=== PATIENT | male | born 1950 | race Caucasian/White ===

== ENCOUNTER 2020-09-09 10:43 | Inpatient (IN) | payer MEDICARE ==
[2020-09-09] MEDS ORDERED: Sodium Chloride 0.9% 10 ML Syringe FLUSH PRN (10:45)
[2020-09-09] MEDS ORDERED: Metoprolol Tartrate 5 MG/5 ML SDV IVPUSH ONE (10:46)
[2020-09-09] MEDS ORDERED: Aspirin 81 MG Tab.Chew PO ONE (10:46)
[2020-09-09] MEDS ORDERED: Sodium Chloride 0.9% 1,000 ML IV ONE (10:47)
--- NOTE | 2020-09-09 10:49 | EDM.PDOC ---
ED HPI GENERAL MEDICAL PROBLEM - General Chief Complaint: Chest Pain Stated Complaint: AMBULANCE Time Seen by Provider: 09/09/20 10:43 Source of Information: Reports: Patient, EMS History Limitations: Reports: No Limitations - History of Present Illness INITIAL COMMENTS - FREE TEXT/NARRATIVE: patient presented to the ER with a c/o CP and palpitations - started last night. He is visiting from another town and decided to wait till the morning - hoping it will resolve on it's own. h/o CAD - s/p CABG 18 yrs ago - no stents. h/o T2DM on OHA. h/o COPD - not on 02. Reports CP 10 out of 10. EMS done EKG showed afib w RVR. quit smoking 18 yrs ago. Drinks ETOH + coffee on a daily basis. Onset: Sudden Duration: Day(s): (1) Location: Reports: Chest Quality: Reports: Sharp Severity: Severe Improves with: Reports: None Worsens with: Reports: None Mid-Sternal Chest Pain Score (Numeric/FACES): 4 - Related Data Allergies Allergy/AdvReac Type Severity Reaction Status Date / Time sulfamethoxazole Allergy Mild Other Verified 09/09/20 11:15 [From Bactrim] trimethoprim [From Bactrim] Allergy Mild Other Verified 09/09/20 11:15 Home Meds: Home Meds Aspirin [Aspirin EC] 325 mg PO QPM 09/09/20 [History] Doxycycline Monohydrate 100 mg PO BID 09/09/20 [History] Empagliflozin [Jardiance] 25 mg PO DAILY 09/09/20 [History] Fluticasone Propionate [Flonase Allergy Relief] 9.9 ml NS DAILY 09/09/20 [History] Metoprolol Succinate [Toprol XL] 25 mg PO DAILY 09/09/20 [History] Omeprazole 40 mg PO DAILY 09/09/20 [History] atorvaSTATin [Lipitor] 80 mg PO BEDTIME 09/09/20 [History] lisinopriL [Lisinopril] 5 mg PO DAILY 09/09/20 [History] metFORMIN [Glucophage] 500 mg PO BIDMEALS 09/09/20 [History] Past Medical History Cardiovascular History: Reports: CAD Respiratory History: Reports: COPD Gastrointestinal History: Reports: GERD ED ROS GENERAL - Review of Systems Review Of Systems: See Below Constitutional: Reports: No Symptoms HEENT: Reports: No Symptoms Respiratory: Reports: No Symptoms Cardiovascular: Reports: Chest Pain GI/Abdominal: Reports: No Symptoms Musculoskeletal: Reports: No Symptoms Skin: Reports: No Symptoms Neurological: Reports: No Symptoms ED EXAM, GENERAL - Physical Exam Exam: See Below Exam Limited By: No Limitations General Appearance: Alert, WD/WN, Mild Distress Eye Exam: Bilateral Eye: EOMI, PERRL Head: Atraumatic Respiratory/Chest: No Respiratory Distress, Lungs Clear Cardiovascular: Normal Peripheral Pulses, Tachycardia GI/Abdominal: Normal Bowel Sounds, Soft, Non-Tender Back Exam: Normal Inspection, Full Range of Motion Neurological: Alert, Oriented, No Motor/Sensory Deficits #1 Interpretation EKG Date: 09/09/20 Rhythm: A-Fib [place]: Normal P-Wave: Absent QRS: Normal ST-T: Normal QT: Normal Comparison: NA - No Prior EKG #2 Interpretation EKG Date: 09/09/20 Rhythm: NSR [place]: Normal P-Wave: Present QRS: Normal ST-T: Normal QT: Normal Comparison: Change From Previous EKG Course - Vital Signs Last Recorded V/S: Last Vital Signs Temp Pulse 69 09/09/20 12:45 Resp 18 09/09/20 12:23 BP 119/77 09/09/20 12:45 Pulse Ox 100 09/09/20 12:45 - Orders/Labs/Meds Orders: Active Orders 24 hr Category Date Time Status EKG Documentation Completion [RC] ASDIRECTED Care 09/09/20 10:46 Active CORONAVIRUS COVID-19 RAPID [[facility]] Urgent Lab 09/09/20 12:12 Ordered Heparin Sodium/D5W [Heparin 25,000 Units in D5W 500 ML] Med 09/09/20 11:30 Active 25,000 units in 500 ml IV TITRATE Sodium Chloride 0.9% [Saline Flush] Med 09/09/20 10:45 Active 10 ml FLUSH ASDIRECTED PRN Saline Lock Insert [OM.PC] Routine Oth 09/09/20 10:45 Ordered EKG 12 Lead [EK] Routine Ther 09/09/20 10:45 Ordered Medication Orders Heparin Sodium/Dextrose (Heparin 25,000 Units In D5w 500 Ml) 25,000 units in 500 mls @ 19.051 mls/hr IV TITRATE VENITA; Protocol Last Admin: 09/09/20 11:43 Dose: 12 units/kg/hr, 19.051 mls/hr Documented by: KAUSHIK Cosigned by: WEEMAMY Sodium Chloride (Sodium Chloride 0.9% 10 Ml Syringe) 10 ml FLUSH ASDIRECTED PRN PRN Reason: Keep Vein Open Labs: Laboratory Tests 09/09/20 09/09/20 09/09/20 Range/Units 10:57 10:57 10:57 WBC 8.2 (4.0-11.0) K/uL RBC 3.92 L (4.50-6.50) M/uL Hgb 11.7 L (13.0-18.0) g/dL Hct 36.2 L (40.0-54.0) % MCV 92 (76-96) fL MCH 29.8 (27.0-32.0) pg MCHC 32.3 (31.0-35.0) g/dL RDW 14.9 (11.0-16.0) % Plt Count 280 (150-400) K/uL MPV 9.8 (6.0-10.0) fL APTT (24.4-33.2) SECONDS D-Dimer, Quantitative 777 H (0-400) ng/mL Sodium 139 (136-145) mmol/L Potassium 3.9 (3.5-5.1) mmol/L Chloride 103 (98-107) mmol/L Carbon Dioxide 20.3 L (21.0-32.0) mmol/L Anion Gap 19.6 H (5.0-15.0) mmol/L BUN 21 (8-26) mg/dL Creatinine 1.49 H (0.70-1.30) mg/dL Est Cr Clr Drug Dosing TNP Estimated GFR (MDRD) 46 L (>60) MLS/MIN BUN/Creatinine Ratio 14.1 (6-25) Glucose 252 H (74-100) mg/dL Calcium 9.3 (8.5-10.1) mg/dL Phosphorus 2.4 L (2.5-4.9) mg/dL Magnesium 1.4 L (1.8-2.4) mg/dL Troponin I 0.034 (0.000-0.060) ng/mL 09/09/20 Range/Units 11:29 WBC (4.0-11.0) K/uL RBC (4.50-6.50) M/uL Hgb (13.0-18.0) g/dL Hct (40.0-54.0) % MCV (76-96) fL MCH (27.0-32.0) pg MCHC (31.0-35.0) g/dL RDW (11.0-16.0) % Plt Count (150-400) K/uL MPV (6.0-10.0) fL APTT 24.2 L (24.4-33.2) SECONDS D-Dimer, Quantitative (0-400) ng/mL Sodium (136-145) mmol/L Potassium (3.5-5.1) mmol/L Chloride (98-107) mmol/L Carbon Dioxide (21.0-32.0) mmol/L Anion Gap (5.0-15.0) mmol/L BUN (8-26) mg/dL Creatinine (0.70-1.30) mg/dL Est Cr Clr Drug Dosing Estimated GFR (MDRD) (>60) MLS/MIN BUN/Creatinine Ratio (6-25) Glucose (74-100) mg/dL Calcium (8.5-10.1) mg/dL Phosphorus (2.5-4.9) mg/dL Magnesium (1.8-2.4) mg/dL Troponin I (0.000-0.060) ng/mL Meds: Medications Generic Name Dose Route Start Last Admin Trade Name Freq PRN Reason Stop Dose Admin Heparin Sodium/Dextrose 25,000 units in 500 mls @ 19.051 mls/hr 09/09/20 11:30 09/09/20 11:43 Heparin 25,000 Units In D5w 500 Ml IV 12 units/kg/hr TITRATE VENITA 19.051 mls/hr Administration Protocol 12 UNITS/KG/HR Sodium Chloride 10 ml 09/09/20 10:45 Sodium Chloride 0.9% 10 Ml Syringe FLUSH ASDIRECTED PRN Keep Vein Open Discontinued Medications Generic Name Dose Route Start Last Admin Trade Name Freq PRN Reason Stop Dose Admin Aspirin 324 mg 09/09/20 10:46 09/09/20 10:52 Aspirin 81 Mg Tab.Chew PO 09/09/20 10:47 324 mg ONETIME ONE Administration Sodium Chloride 1,000 mls @ 999 mls/hr 09/09/20 10:47 09/09/20 11:23 Normal Saline IV 09/09/20 11:47 999 mls/hr .BOLUS ONE Administration Magnesium Sulfate/Dextrose Confirm 09/09/20 12:43 Magnesium Sulfate In D5w 1 Gm/100 Ml Administered 09/09/20 12:44 Dose 1 gm in 100 mls @ as directed .ROUTE .STK-MED ONE Magnesium Sulfate/Dextrose 1 gm 09/09/20 11:31 Magnesium Sulfate/D5w 1 Gm/100 Ml Premix Bag IV 09/09/20 11:32 NOW STA Metoprolol Tartrate 5 mg 09/09/20 10:46 Metoprolol Tartrate 5 Mg/5 Ml Sdv IVPUSH 09/09/20 10:47 ONETIME ONE Nitroglycerin 0.4 mg 09/09/20 10:46 09/09/20 12:03 Nitroglycerin 0.4 Mg Tab.Sl SL 0.4 mg Q5M PRN Administration Chest Pain - Re-Assessments/Exams Free Text/Narrative Re-Assessment/Exam: upon arrival to the ER IV line was established initial EKG - showed afib w RVR HR 170's, BP 125/80. sating 98% on RA. CXR showed left lower lobe increased density - seems chronic and consistent with a h/o lung scarring from a remote lung infection CP was 10 out of 10 - Resolved after Nitro SL x2 ASA 324mg PO was given labs were ordered - including CBC, BMP, trop and ddimer. significant for low Mg level, high Cr and high ddimer. but normal Trop. HR down to 80 - EKG was repeated - showed NSR with no signs of ischemic changes IV heparin bolus and drip were started - 4k bolus and 1000unit/hr chest pain down to 1. He is happy with the outcome. Mg replacement by IV decision to admit the patient to the floor for IV heparin , hydration and Trop trend Departure - Departure Time of Disposition: 12:55 Disposition: Admitted As Inpatient 65 Condition: Fair Clinical Impression: Atrial fibrillation with RVR, D-dimer, elevated, Hypomagnesemia, COPD not affecting current episode of care Chest pain Qualifiers: Chest pain type: chest pain due to myocardial ischemia Ischemic chest pain type: unspecified angina pectoris type Qualified Code(s): I25.9 - Chronic ischemic heart disease, unspecified Forms: ED Department Discharge Sepsis Event Note (ED) - Focused Exam Vital Signs: Vital Signs Pulse Resp BP BP Pulse Ox 09/09/20 12:45 69 119/77 100 09/09/20 12:44 90 102/58 L 100 09/09/20 12:30 67 119/56 L 100 09/09/20 12:23 129 H 18 122/89 100 09/09/20 12:15 70 107/57 L 100 09/09/20 12:03 122/62 09/09/20 11:45 122/62 09/09/20 11:30 104/62 100 09/09/20 11:15 85 104/71 100 09/09/20 11:00 122 H 95/57 L 100 09/09/20 10:55 129/83 09/09/20 10:50 129/83 - Problem List & Annotations (1) Atrial fibrillation with RVR SNOMED Code(s): 134170806471916 Code(s): I48.91 - UNSPECIFIED ATRIAL FIBRILLATION Status: Acute Priority: Medium Current Visit: Yes (2) COPD not affecting current episode of care SNOMED Code(s): 22886942 Code(s): J44.9 - CHRONIC OBSTRUCTIVE PULMONARY DISEASE, UNSPECIFIED Status: Acute Priority: Low Current Visit: Yes (3) Chest pain SNOMED Code(s): 09721272 Code(s): R07.9 - CHEST PAIN, UNSPECIFIED Status: Acute Priority: Medium Current Visit: Yes Qualifiers: Chest pain type: chest pain due to myocardial ischemia Ischemic chest pain type: unspecified angina pectoris type Qualified Code(s): I25.9 - Chronic ischemic heart disease, unspecified (4) D-dimer, elevated SNOMED Code(s): 172623119 Code(s): R79.89 - OTHER SPECIFIED ABNORMAL FINDINGS OF BLOOD CHEMISTRY Status: Acute Priority: Low Current Visit: Yes (5) Hypomagnesemia SNOMED Code(s): 606780523 Code(s): E83.42 - HYPOMAGNESEMIA Status: Acute Priority: Low Current Visit: Yes - Problem List Review Problem List Initiated/Reviewed/Updated: Yes - My Orders Last 24 Hours: My Active Orders 09/09/20 10:45 Sodium Chloride 0.9% [Saline Flush] 10 ml FLUSH ASDIRECTED PRN Saline Lock Insert [OM.PC] Routine EKG 12 Lead [EK] Routine 09/09/20 10:46 EKG Documentation Completion [RC] ASDIRECTED 09/09/20 11:30 Heparin Sodium/D5W [Heparin 25,000 Units in D5W 500 ML] 25,000 units in 500 ml IV TITRATE 09/09/20 12:12 CORONAVIRUS COVID-19 RAPID [[facility]] Urgent - Assessment/Plan Last 24 Hours: My Active Orders 09/09/20 10:45 Sodium Chloride 0.9% [Saline Flush] 10 ml FLUSH ASDIRECTED PRN Saline Lock Insert [OM.PC] Routine EKG 12 Lead [EK] Routine 09/09/20 10:46 EKG Documentation Completion [RC] ASDIRECTED 09/09/20 11:30 Heparin Sodium/D5W [Heparin 25,000 Units in D5W 500 ML] 25,000 units in 500 ml IV TITRATE 09/09/20 12:12 CORONAVIRUS COVID-19 RAPID [[facility]LEC] Urgent Plan: 1- chest pain 2- ddimer elevation 3- afib w rvr 4- KADEEM 5- hypomagnesemia 6- h/o COPD 7- h/o CAD s/o CABG - continue on tele - troponin trend x3 - resume heparin by IV - resume hydration to improve kidney function - them maybe perform CT chest with IV contrast - Mg replacement - chest pain control with Nitro and heparin
[2020-09-09] MEDS: Nitroglycerin 0.4 MG Tab.SL SL PRN ×3 (10:50→12:03)
[2020-09-09] MEDS ORDERED: Heparin Sodium/D5W 25,000 UNITS/500 ML BAG IV SCH (11:30)
[2020-09-09] MEDS ORDERED: Magnesium Sulfate/D5W 1 GM/100 ML Premix Bag IV STA ×2 (11:31→17:09)
--- NOTE | 2020-09-09 11:52 | CR ---
DATE OF SERVICE: 09/09/2020 CLINICAL DATA: CP AP CHEST: The heart size is normal. There is increased density in the left lung base adjacent to the left hemidiaphragm consistent with basilar atelectasis or infiltrate. Pneumonia should be considered. There is slight blunting of the left costophrenic angle suggesting a small left pleural effusion or pleural scar. There are scattered reticular opacities throughout both lungs. There is a small nodular density in the right lower lung laterally. Chest CT is recommended to further evaluate it. There is degenerative disc disease throughout the thoracic spine. No other significant findings. [id number] [facility]
[2020-09-09] MEDS ORDERED: Magnesium Sulfate/D5W 1 GM/100 ML BAG ONE ×2 (12:43→17:13)
[2020-09-09] MEDS: EMPAGLIFLOZIN 25 MG PO SCH (16:04)
[2020-09-09] MEDS ORDERED: Nitroglycerin 0.4 MG Tab.SL SL ONE ×2 (17:07→21:10)
[2020-09-09] MEDS ORDERED: Magnesium Sulfate/D5W 1 GM/100 ML BAG IV ONE (17:15)
[2020-09-09] MEDS: metFORMIN 500 MG Tab PO SCH (17:17)
[2020-09-09] MEDS: Doxycycline 100 MG Cap PO SCH (19:49)
[2020-09-09] MEDS ORDERED: Aspirin 325 MG Tab.EC PO SCH (20:00)
[2020-09-09] MEDS ORDERED: atorvaSTATin 80 MG Tab PO SCH (20:00)
[2020-09-09] MEDS: Morphine 4 MG/ML VIAL IVPUSH PRN (21:40)
[2020-09-09] MEDS ORDERED: Heparin Sodium 5,000 UNITS/0.5 ML Syringe IVPUSH ONE (22:43)
[2020-09-09] MEDS ORDERED: Heparin Sodium 5,000 Units/ML Vial ONE (22:51)
[2020-09-10] MEDS: Morphine 4 MG/ML VIAL IVPUSH PRN (05:47)
[2020-09-10] MEDS ORDERED: Omeprazole 20 MG Cap.CR PO SCH (07:00)
[2020-09-10] MEDS ORDERED: Magnesium Sulfate/D5W 1 GM/100 ML Premix Bag IV STA (07:57)
[2020-09-10] MEDS ORDERED: Lisinopril 5 MG Tab PO SCH (08:00)
[2020-09-10] MEDS ORDERED: Metoprolol Succinate 25 MG Tab.ER PO SCH (08:00)
--- NOTE | 2020-09-10 08:14 | PCM.DCSUM1 ---
Discharge Summary - Hospital Course Brief History: patient initialy presented to the ER due to chest pain for 12 hrs and palpitations. Upon arrival to the ER, EKG showed afib w RVR - HR in 180. initial trop was WNL. IVF was given and metoprolol. converted back to NSR. Nitro SL was given - reprots pain has resolved. patient was admitted to the floor for observation, tele bed and trop trend. Diagnosis: Stroke: No - Discharge Data Discharge Date: 09/10/20 Discharge Disposition: DC/Tfer to Acute Hospital 02 Condition: Fair - Referral to Home Health Primary Care Physician: PCP None - Discharge Diagnosis/Problem(s) (1) Atrial fibrillation with RVR SNOMED Code(s): 243518983803412 ICD Code: I48.91 - UNSPECIFIED ATRIAL FIBRILLATION Status: Acute Priority: Medium (2) COPD not affecting current episode of care SNOMED Code(s): 43099000 ICD Code: J44.9 - CHRONIC OBSTRUCTIVE PULMONARY DISEASE, UNSPECIFIED Status: Acute Priority: Low (3) Chest pain SNOMED Code(s): 26117202 ICD Code: R07.9 - CHEST PAIN, UNSPECIFIED Status: Acute Priority: Medium Qualifiers: Chest pain type: chest pain due to myocardial ischemia Ischemic chest pain type: unspecified angina pectoris type Qualified Code(s): I25.9 - Chronic ischemic heart disease, unspecified (4) D-dimer, elevated SNOMED Code(s): 875653118 ICD Code: R79.89 - OTHER SPECIFIED ABNORMAL FINDINGS OF BLOOD CHEMISTRY Status: Acute Priority: Low (5) Hypomagnesemia SNOMED Code(s): 270079005 ICD Code: E83.42 - HYPOMAGNESEMIA Status: Acute Priority: Low - Patient Summary/Data Hospital Course: while in the floor - Heparin bolus and drip were given. nitro as needed for mild chest discomfort, as well as, morphine. Trop trend showed increasing to 8 then 16. contacted the advice line rn in [place] - who accepted the patient for evaluation - possible lab scientist. EKG no ST changes was transferred by EMS flight in a stable condition - Patient Instructions Diet: NPO - Discharge Plan *PRESCRIPTION DRUG MONITORING PROGRAM REVIEWED*: Not Applicable *COPY OF PRESCRIPTION DRUG MONITORING REPORT IN PATIENT CATY: Not Applicable Home Medications: Home Meds Aspirin [Aspirin EC] 325 mg PO QPM 09/09/20 [History] Doxycycline Monohydrate 100 mg PO BID 09/09/20 [History] Empagliflozin [Jardiance] 25 mg PO DAILY 09/09/20 [History] Fluticasone Propionate [Flonase Allergy Relief] 9.9 ml NS DAILY 09/09/20 [History] Metoprolol Succinate [Toprol XL] 25 mg PO DAILY 09/09/20 [History] Omeprazole 40 mg PO DAILY 09/09/20 [History] atorvaSTATin [Lipitor] 80 mg PO BEDTIME 09/09/20 [History] lisinopriL [Lisinopril] 5 mg PO DAILY 09/09/20 [History] metFORMIN [Glucophage] 500 mg PO BIDMEALS 09/09/20 [History] Oxygen Therapy Mode: Room Air Forms: ED Department Discharge Referrals: PCP,None [Primary Care Provider] - - Discharge Summary/Plan Comment DC Time >30 min.: Yes - Patient Data Vitals - Most Recent: Last Vital Signs Temp 36.4 C 09/09/20 13:35 Pulse 59 L 09/10/20 06:35 Resp 15 09/10/20 06:35 BP 127/63 09/10/20 04:00 Pulse Ox 97 09/10/20 06:35 Weight - Most Recent: 76.385 kg I&O - Last 24 hours: Intake & Output 09/09/20 09/10/20 09/10/20 22:59 06:59 14:59 Intake Total 240 Output Total 300 700 Balance -60 -700 Lab Results - Last 24 hrs: Laboratory Results - last 24 hr 09/09/20 09/09/20 09/09/20 Range/Units 10:57 10:57 10:57 WBC 8.2 (4.0-11.0) K/uL RBC 3.92 L (4.50-6.50) M/uL Hgb 11.7 L (13.0-18.0) g/dL Hct 36.2 L (40.0-54.0) % MCV 92 (76-96) fL MCH 29.8 (27.0-32.0) pg MCHC 32.3 (31.0-35.0) g/dL RDW 14.9 (11.0-16.0) % Plt Count 280 (150-400) K/uL MPV 9.8 (6.0-10.0) fL APTT (24.4-33.2) SECONDS D-Dimer, Quantitative 777 H (0-400) ng/mL Sodium 139 (136-145) mmol/L Potassium 3.9 (3.5-5.1) mmol/L Chloride 103 (98-107) mmol/L Carbon Dioxide 20.3 L (21.0-32.0) mmol/L Anion Gap 19.6 H (5.0-15.0) mmol/L BUN 21 (8-26) mg/dL Creatinine 1.49 H (0.70-1.30) mg/dL Est Cr Clr Drug Dosing TNP Estimated GFR (MDRD) 46 L (>60) MLS/MIN BUN/Creatinine Ratio 14.1 (6-25) Glucose 252 H (74-100) mg/dL POC Glucose (74-110) mg/dL Calcium 9.3 (8.5-10.1) mg/dL Phosphorus 2.4 L (2.5-4.9) mg/dL Magnesium 1.4 L (1.8-2.4) mg/dL Troponin I 0.034 (0.000-0.060) ng/mL SARS-CoV-2 RNA (CHELSEY) (NEGATIVE) 09/09/20 09/09/20 09/09/20 Range/Units 11:29 12:12 16:07 WBC (4.0-11.0) K/uL RBC (4.50-6.50) M/uL Hgb (13.0-18.0) g/dL Hct (40.0-54.0) % MCV (76-96) fL MCH (27.0-32.0) pg MCHC (31.0-35.0) g/dL RDW (11.0-16.0) % Plt Count (150-400) K/uL MPV (6.0-10.0) fL APTT 24.2 L (24.4-33.2) SECONDS D-Dimer, Quantitative (0-400) ng/mL Sodium 140 (136-145) mmol/L Potassium 4.1 (3.5-5.1) mmol/L Chloride 105 (98-107) mmol/L Carbon Dioxide 22.4 (21.0-32.0) mmol/L Anion Gap 16.7 H (5.0-15.0) mmol/L BUN 20 (8-26) mg/dL Creatinine 1.24 (0.70-1.30) mg/dL Est Cr Clr Drug Dosing 58.20 Estimated GFR (MDRD) 57 L (>60) MLS/MIN BUN/Creatinine Ratio 16.1 (6-25) Glucose 118 H D (74-100) mg/dL POC Glucose (74-110) mg/dL Calcium 8.5 (8.5-10.1) mg/dL Phosphorus (2.5-4.9) mg/dL Magnesium 1.6 L (1.8-2.4) mg/dL Troponin I 8.097 H* D (0.000-0.060) ng/mL SARS-CoV-2 RNA (CHELSEY) Negative (NEGATIVE) 09/09/20 09/09/20 09/09/20 Range/Units 16:07 21:20 22:00 WBC (4.0-11.0) K/uL RBC (4.50-6.50) M/uL Hgb (13.0-18.0) g/dL Hct (40.0-54.0) % MCV (76-96) fL MCH (27.0-32.0) pg MCHC (31.0-35.0) g/dL RDW (11.0-16.0) % Plt Count (150-400) K/uL MPV (6.0-10.0) fL APTT > 192.4 H* D 37.5 H D (24.4-33.2) SECONDS D-Dimer, Quantitative (0-400) ng/mL Sodium (136-145) mmol/L Potassium (3.5-5.1) mmol/L Chloride (98-107) mmol/L Carbon Dioxide (21.0-32.0) mmol/L Anion Gap (5.0-15.0) mmol/L BUN (8-26) mg/dL Creatinine (0.70-1.30) mg/dL Est Cr Clr Drug Dosing Estimated GFR (MDRD) (>60) MLS/MIN BUN/Creatinine Ratio (6-25) Glucose (74-100) mg/dL POC Glucose 150 H (74-110) mg/dL Calcium (8.5-10.1) mg/dL Phosphorus (2.5-4.9) mg/dL Magnesium (1.8-2.4) mg/dL Troponin I (0.000-0.060) ng/mL SARS-CoV-2 RNA (CHELSEY) (NEGATIVE) 09/09/20 09/10/20 09/10/20 Range/Units 22:00 06:00 06:00 WBC (4.0-11.0) K/uL RBC (4.50-6.50) M/uL Hgb (13.0-18.0) g/dL Hct (40.0-54.0) % MCV (76-96) fL MCH (27.0-32.0) pg MCHC (31.0-35.0) g/dL RDW (11.0-16.0) % Plt Count (150-400) K/uL MPV (6.0-10.0) fL APTT 52.7 H D (24.4-33.2) SECONDS D-Dimer, Quantitative (0-400) ng/mL Sodium (136-145) mmol/L Potassium (3.5-5.1) mmol/L Chloride (98-107) mmol/L Carbon Dioxide (21.0-32.0) mmol/L Anion Gap (5.0-15.0) mmol/L BUN (8-26) mg/dL Creatinine (0.70-1.30) mg/dL Est Cr Clr Drug Dosing Estimated GFR (MDRD) (>60) MLS/MIN BUN/Creatinine Ratio (6-25) Glucose (74-100) mg/dL POC Glucose (74-110) mg/dL Calcium (8.5-10.1) mg/dL Phosphorus (2.5-4.9) mg/dL Magnesium 1.6 L (1.8-2.4) mg/dL Troponin I 14.036 H* D 16.109 H* (0.000-0.060) ng/mL SARS-CoV-2 RNA ([facility]HELSEY) (NEGATIVE) Med Orders - Current: Current Medications Aspirin (Aspirin 325 Mg Tab.Ec) 325 mg PO QPM [facility] Last Admin: 09/09/20 19:49 Dose: 325 mg Documented by: Atorvastatin Calcium (Atorvastatin 80 Mg Tab) 80 mg PO BEDTIME [facility] Last Admin: 09/09/20 19:49 Dose: 80 mg Documented by: Doxycycline Hyclate (Doxycycline 100 Mg Cap) 100 mg PO BID [facility] Last Admin: 09/09/20 19:49 Dose: 100 mg Documented by: Heparin Sodium/Dextrose (Heparin 25,000 Units In D5w 500 Ml) 25,000 units in 500 mls @ 19.051 mls/hr IV TITRATE [facility]; Protocol Last Titration: 09/09/20 23:06 Dose: 11 units/kg/hr, 17.463 mls/hr Documented by: Lisinopril (Lisinopril 5 Mg Tab) 5 mg PO DAILY [facility] Metformin HCl (Metformin 500 Mg Tab) 500 mg PO BIDMEALS [facility] Last Admin: 09/09/20 17:17 Dose: 500 mg Documented by: Metoprolol Succinate (Metoprolol Succinate 25 Mg Tab.Er) 25 mg PO DAILY [facility] Morphine Sulfate (Morphine 4 Mg/Ml Vial) 4 mg IVPUSH Q4H PRN PRN Reason: Chest Pain Last Admin: 09/10/20 05:47 Dose: 4 mg Documented by: Empagliflozin ( Jardiance) 25 Mg Tablet Own Med 0 mg PO DAILY [facility] Last Admin: 09/09/20 16:04 Dose: 25 mg Documented by: Omeprazole (Omeprazole 20 Mg Cap.Cr) 40 mg PO ACBREAKFAST [facility] Last Admin: 09/10/20 06:36 Dose: 40 mg Documented by: Sodium Chloride (Sodium Chloride 0.9% 10 Ml Syringe) 10 ml FLUSH ASDIRECTED PRN PRN Reason: Keep Vein Open Discontinued Medications Aspirin (Aspirin 81 Mg Tab.Chew) 324 mg PO ONETIME ONE Stop: 09/09/20 10:47 Last Admin: 09/09/20 10:52 Dose: 324 mg Documented by: Heparin Sodium (Porcine) (Heparin Sodium 5,000 Units/0.5 Ml Syringe) 1,000 units IVPUSH .BOLUS ONE Stop: 09/09/20 22:44 Last Admin: 09/09/20 23:01 Dose: 1,000 units Documented by: Heparin Sodium (Porcine) (Heparin Sodium 5,000 Units/Ml Vial) Confirm Administered Dose 5,000 units .ROUTE .STK-MED ONE Stop: 09/09/20 22:52 Last Admin: 09/09/20 23:01 Dose: Not Given Documented by: Sodium Chloride (Normal Saline) 1,000 mls @ 999 mls/hr IV .BOLUS ONE Stop: 09/09/20 11:47 Last Admin: 09/09/20 11:23 Dose: 999 mls/hr Documented by: Magnesium Sulfate/Dextrose (Magnesium Sulfate In D5w 1 Gm/100 Ml) Confirm Administered Dose 1 gm in 100 mls @ as directed .ROUTE .STK-MED ONE Stop: 09/09/20 12:44 Last Admin: 09/09/20 12:59 Dose: Not Given Documented by: Magnesium Sulfate/Dextrose (Magnesium Sulfate In D5w 1 Gm/100 Ml) 1 gm in 100 mls @ 200 mls/hr IV ONETIME ONE Stop: 09/09/20 17:44 Last Admin: 09/09/20 17:17 Dose: 200 mls/hr Documented by: Magnesium Sulfate/Dextrose (Magnesium Sulfate In D5w 1 Gm/100 Ml) Confirm Administered Dose 1 gm in 100 mls @ as directed .ROUTE .STK-MED ONE Stop: 09/09/20 17:14 Last Admin: 09/09/20 17:17 Dose: Not Given Documented by: Magnesium Sulfate/Dextrose (Magnesium Sulfate/D5w 1 Gm/100 Ml Premix Bag) 1 gm IV NOW STA Stop: 09/09/20 11:32 Last Admin: 09/09/20 12:53 Dose: 1 gm Documented by: Magnesium Sulfate/Dextrose (Magnesium Sulfate/D5w 1 Gm/100 Ml Premix Bag) 1 gm IV NOW STA Stop: 09/09/20 17:10 Magnesium Sulfate/Dextrose (Magnesium Sulfate/D5w 1 Gm/100 Ml Premix Bag) 1 gm IV NOW STA Stop: 09/10/20 07:58 Metoprolol Tartrate (Metoprolol Tartrate 5 Mg/5 Ml Sdv) 5 mg IVPUSH ONETIME ONE Stop: 09/09/20 10:47 Last Admin: 09/09/20 13:00 Dose: Not Given Documented by: Nitroglycerin (Nitroglycerin 0.4 Mg Tab.Sl) 0.4 mg SL Q5M PRN PRN Reason: Chest Pain Last Admin: 09/09/20 12:03 Dose: 0.4 mg Documented by: Nitroglycerin (Nitroglycerin 0.4 Mg Tab.Sl) 0.4 mg SL ONETIME ONE Stop: 09/09/20 17:08 Last Admin: 09/09/20 17:18 Dose: 0.4 mg Documented by: Nitroglycerin (Nitroglycerin 0.4 Mg Tab.Sl) 0.4 mg SL ONETIME ONE Stop: 09/09/20 21:11 Last Admin: 09/09/20 21:10 Dose: 0.4 mg Documented by:
[2020-09-10] MEDS: metFORMIN 500 MG Tab PO SCH (08:30)
[2020-09-10] MEDS: Doxycycline 100 MG Cap PO SCH (08:30)
[2020-09-10] MEDS: EMPAGLIFLOZIN 25 MG PO SCH (08:30)
[2020-09-10] MEDS ORDERED: Nitroglycerin 0.4 MG Tab.SL SL ONE (08:52)
[2020-09-10 09:44] VITALS: BP 121/65; PULSE 62
== END 2020-09-10 11:35 | DRG 641 ==
LOC: LB.ED 10:43 → LB.MS 13:19
PROVIDERS: ADMIT Surgery; ATTEND Surgery
DX: E83.42 Hypomagnesemia (principal); N17.9 Acute kidney failure, unspecified; I25.9 Chronic ischemic heart disease, unspecified; I48.91 Unspecified atrial fibrillation; J44.9 Chronic obstructive pulmonary disease, unspecified; R79.89 Other specified abnormal findings of blood chemistry; I25.10 Atherosclerotic heart disease of native coronary artery without angina pectoris; K21.9 Gastro-esophageal reflux disease without esophagitis; Z20.822 Contact with and (suspected) exposure to COVID-19; E11.9 Type 2 diabetes mellitus without complications; Z95.1 Presence of aortocoronary bypass graft; Z79.82 Long term (current) use of aspirin; Z79.84 Long term (current) use of oral hypoglycemic drugs; Z79.899 Other long term (current) drug therapy; Z88.2 Allergy status to sulfonamides; Z88.1 Allergy status to other antibiotic agents; Z87.891 Personal history of nicotine dependence
CPT/HCPCS: 36415; 71045; 80048; 82947; 83735; 84100; 84484; 85027; 85379; 85730; 87070; 93005; A0425; A0429; A9270-GY; J1644; J1644-GY; J2270; J3475; J7030; U0002